=== PATIENT | female | born 1945 | race Caucasian/White ===

== ENCOUNTER 2016-04-05 15:02 | Inpatient (IN) | payer OTHER ==
[~2016-04-05] VITALS: Ht 167.6 cm; Wt 103.5 kg
[~2016-04-05 15:02] MED LIST: ALLOPURINOL100 MG PO; ANALPRAM HC 2.5%4 G1 PR; BENADRYL ITCH28.3 GM TP; BENEFIBER236 GM PO; CARDURA8 MG PO; COZAAR50 MG PO; DOXAZOSIN MESYLA4 MG PO; EMERGEN-C PO; ERGOCALCIF50000 UNIT PO; FLONASE16 G1 BOTH NARES; FUROSEMIDE40 MG PO; GEMFIBROZIL600 MG PO; GLIMEPIRIDE4 MG PO; HYDROCHLOROTH12.5 M3 PO; KEFLEX500 MG PO; KRISTALOSE20 GM PO; LANTUS 10100 UNITS/ SC; LO-DOSE ASPIRIN81 M1 PO; LOVASTATIN40 MG PO; MEDROL DOSEPAK4 MG PO; METFORMIN HCL500 MG PO; MIRALAX17 GM PO; NOVOLIN N100 UNITS/ SC; NOVOLIN,HU100 UNITS1 SC; NOVOLOG 10100 UNITS/ SC; RESTORIL30 MG PO; SALINE NASAL SP45 ML BOTH NARES; TEMAZEPAM30 MG PO; ULTRAM50 MG PO; VICTOZA 2-0.6 MG/0.1 SC; VITAMIN D250000 UNIT PO; ZYRTEC10 M3 PO
[2016-04-05 16:51] LABS: HEMATOCRIT 30.3 % (36.0-46.0); MCH 27.8 PG (29.0-34.0); MCV 86.8 FL (83-99); MEAN PLAT.VOLUME 10.6 uM^3 (9.5-12.4); PLATELET COUNT 146 K/uL (156-360); RBC DIS.WIDTH-CV 16.2 % (11.8-14.6); RBC DIS.WIDTH-SD 49.1 % (39-53); RED BLOOD COUNT 3.49 M/uL (3.80-5.20); WHITE BLOOD COUNT 6.3 K/uL (4.1-10.2)
[2016-04-05 17:01] LABS: CHLORIDE 112 mEq/L (99-109); POTASSIUM 5.1 mEq/L (3.7-5.4); SODIUM 140 mEq/L (136-147)
[2016-04-05 17:03] LABS: GLUCOSE 113 mg/dL (70-99)
[2016-04-05 17:04] LABS: ANION GAP 11 MEQ/L (2-14)
[2016-04-05 17:07] LABS: GFR ESTIMATE (CALCULATED) 24 mL/min/
[2016-04-05 17:08] LABS: UREA NITROGEN (BUN) 61 mg/dL (9-23)
[2016-04-05] MEDS ORDERED: AVAPRO150 MG PO (17:14)
[2016-04-05] MEDS ORDERED: NOVOLIN,HU100 UNITS1 SC (17:14)
[2016-04-05] MEDS ORDERED: BUMEX1 MG PO (17:15)
[2016-04-05] MEDS ORDERED: APRESOLINE25 MG PO (17:15)
[2016-04-05] MEDS ORDERED: SYNTHROID75 MCG PO (17:15)
[2016-04-05 17:25] LABS: TROP-I INTERPRETATION NEGATIVE; TROPONIN-I 0.02 ng/mL (0.0-0.30)
[2016-04-05 19:05] LABS: D-DIMER ELISA 0.85 mg/L FEU (< 0.57)
[2016-04-05 22:26] LABS: POINT-OF-CARE METER ID UU14162513
[2016-04-05 23:30] LABS: TROP-I INTERPRETATION NEGATIVE; TROPONIN-I 0.02 ng/mL (0.0-0.30)
[2016-04-06 03:30] LABS: POINT-OF-CARE METER ID UU13113831
[2016-04-06 06:43] LABS: TROP-I INTERPRETATION NEGATIVE; TROPONIN-I 0.04 ng/mL (0.0-0.30)
[2016-04-06 08:20] LABS: POINT-OF-CARE METER ID UU13113831
[2016-04-06 08:54] VITALS: BP 141/63
[2016-04-06 12:01] VITALS: BP 192/77
[2016-04-06 12:23] VITALS: BP 148/62
[2016-04-06 12:43] LABS: POINT-OF-CARE METER ID UU13113831
[2016-04-06 17:15] LABS: POINT-OF-CARE METER ID UU13113831
[2016-04-06 19:43] LABS: ANION GAP 9 MEQ/L (2-14); CHLORIDE 105 MEQ/L (99-109); GFR ESTIMATE (CALCULATED) 25 mL/min/; POTASSIUM 5.5 MEQ/L (3.7-5.4); SAMPLE HEMOLYSIS CHECK 0; SAMPLE ICTERIC CHECK 0; SAMPLE LIPEMIA CHECK 0; SODIUM 137 MEQ/L (136-147); UREA NITROGEN (BUN) 61 mg/dL (9-23)
[2016-04-06 19:47] LABS: GLUCOSE 222 mg/dL (70-99)
[2016-04-06 20:00] VITALS: BP 166/68
[2016-04-06 22:59] LABS: POINT-OF-CARE METER ID UU14162513
[2016-04-07] VITALS (8 sets, daily range): BP systolic 136–197; BP diastolic 60–85
[2016-04-07 07:48] LABS: POINT-OF-CARE METER ID UU14162513
[2016-04-07 11:53] LABS: POINT-OF-CARE METER ID UU14162513
[2016-04-08 00:10] VITALS: BP 121/75
[2016-04-08 03:32] VITALS: BP 158/85
[2016-04-08 08:04] VITALS: BP 175/65
[2016-04-08 09:13] LABS: HEMATOCRIT 28.9 % (36.0-46.0); MCH 27.8 PG (29.0-34.0); MCHC 32.5 G/DL (30.0-36.0); MCV 85.5 FL (83-99); MEAN PLAT.VOLUME 11.4 uM^3 (9.5-12.4); PLATELET COUNT 153 K/uL (156-360); RBC DIS.WIDTH-CV 15.9 % (11.8-14.6); RBC DIS.WIDTH-SD 49.3 % (39-53); RED BLOOD COUNT 3.38 M/uL (3.80-5.20); WHITE BLOOD COUNT 4.5 K/uL (4.1-10.2)
[2016-04-08 09:39] LABS: ANION GAP 10 MEQ/L (2-14); CHLORIDE 104 MEQ/L (99-109); GFR ESTIMATE (CALCULATED) 24 mL/min/; GLUCOSE 196 mg/dL (70-99); POTASSIUM 4.9 MEQ/L (3.7-5.4); SAMPLE HEMOLYSIS CHECK 0; SAMPLE ICTERIC CHECK 0; SAMPLE LIPEMIA CHECK 0; SODIUM 136 MEQ/L (136-147); UREA NITROGEN (BUN) 65 mg/dL (9-23)
[2016-04-08 11:37] VITALS: BP 154/67
[2016-04-08] MEDS ORDERED: LASIX40 MG PO (11:37)
== END 2016-04-08 12:55 | disposition home or self-care (01) | DRG 292 ==
LOC: EME 15:02 → EDOF 18:22 → 5WEST 18:22 → EDOF 18:22 → 5WEST 21:39 → 4EAST 04-07 17:14
PROVIDERS: Emergency Medicine; Hospitalist; Internal Medicine Cardiovascular Disease; Nurse Practitioner Adult Health; Student in an Organized Health Care Education/Training Program
DX: I50.31 Acute diastolic (congestive) heart failure (principal); N17.9 Acute kidney failure, unspecified; I44.1 Atrioventricular block, second degree; I12.9 Hypertensive chronic kidney disease with stage 1 through stage 4 chronic kidney disease, or unspecified chronic kidney disease; Z99.2 Dependence on renal dialysis; E66.9 Obesity, unspecified; N18.3 Chronic kidney disease, stage 3 (moderate); E03.9 Hypothyroidism, unspecified; M10.9 Gout, unspecified; I49.9 Cardiac arrhythmia, unspecified; G40.909 Epilepsy, unspecified, not intractable, without status epilepticus; E87.5 Hyperkalemia; E11.22 Type 2 diabetes mellitus with diabetic chronic kidney disease; Z85.41 Personal history of malignant neoplasm of cervix uteri; Z88.8 Allergy status to other drugs, medicaments and biological substances
CPT/HCPCS: 71020; 72131; 78582; 80048; 81003; 82948; 83880; 84484; 85027; 85379; 93005; 93970; 94799; 99281; 99285; A9539; A9540; G0378; J1170; J1644; J1815; J1940